=== PATIENT | female | born 1995 | race Caucasian/White ===

== ENCOUNTER 2019-12-09 19:42 | Emergency (ER) | payer OTHER | END 2019-12-10 01:14 | disposition home or self-care (01) | LOC: M.ERS 19:42 | DX: R10.32 Left lower quadrant pain (principal); Z88.1 Allergy status to other antibiotic agents; Z88.8 Allergy status to other drugs, medicaments and biological substances; Z79.899 Other long term (current) drug therapy ==

== ENCOUNTER → 2020-03-23 | Outpatient (CLI) | payer OTHER ==
[~2020-03-23] MED LIST: CITRATE OF MAG296 M1 PO; CONCERTA ER 1818 MG PO; MACROBID 100 M100 MG PO; NORCO 5-325 TA1 EAC2 PO; SYNTHROID88 MC1 PO; WELLBUTRIN SR100 MG PO; ZOFRAN ODT4 MG DISSOLVE
== END ==
LOC: M.NUC 12:20
PROVIDERS: ATTEND Surgery
DX: R10.9 Unspecified abdominal pain (principal)

== ENCOUNTER → 2020-04-27 | Outpatient (CLI) | payer OTHER ==
[~2020-04-27] MED LIST changes: +METHYLPHENIDATE40 M1 PO
== END ==
LOC: M.LAB 11:10
PROVIDERS: ATTEND Surgery
DX: Z01.812 Encounter for preprocedural laboratory examination (principal); R10.9 Unspecified abdominal pain; Z20.828 Contact with and (suspected) exposure to other viral communicable diseases

== ENCOUNTER → 2020-05-02 | Day surgery (SDC) | payer OTHER ==
[~2020-05-02] MED LIST changes: +OXYCODONE HCL 55 MG PO
[2020-05-02 12:09] LABS: HEMATOCRIT 41.3 % (37.0-47.0); HEMOGLOBIN 14.2 gm/dL (12.0-15.0)
--- NOTE | 2020-05-03 18:16 | OP ---
[address] [address] OPERATIVE REPORT Name: CHARLIEDAQUANERICAGEORGIANA CRAFT Rocky Room: [facility]#: [id number] Admission: 05/02/20 Attend Phys: Elizabeth Jaimes Discharge: Date of : 89 Report #: [id number] THIS REPORT FOR: cc: Alona Regalado,Alona CHASE ~ Parmjit Aguilar DO CC: Parmjit Regalado FINANCIAL PLANNING ADVISOR DICTATED BY: Fatemeh Vasquez DO DATE OF SERVICE: 05/02/2020 PRIMARY CARE PHYSICIAN: Alona Regalado NP PREOPERATIVE DIAGNOSIS: Right-sided abdominal pain. POSTOPERATIVE DIAGNOSIS: Right-sided abdominal pain. PROCEDURE PERFORMED: Diagnostic laparoscopy with laparoscopic appendectomy. PRIMARY SURGEON: Parmjit Aguilar DO SENIOR CENTER MANAGER: Fatemeh Vasquez DO, PGY3. SECOND SALES DEPARTMENT SUPERVISOR: Chalino CALDERON3. ANESTHESIA: General. ESTIMATED BLOOD LOSS: 5 mL. SPECIMEN: Appendix. COMPLICATIONS: None. FINDINGS: Normal appearing reproductive organs. There were some adhesions in the right abdomen from the ascending colon to the abdominal wall. Otherwise, no acute findings. INDICATIONS FOR PROCEDURE: The patient is a pleasant 24-year-old female who presented to our office with complaint of recurrent right-sided abdominal pain. She had several CT scans in the past, one of which was reviewed by her urologist, which did show appendicolith in the appendix, but no signs of appendicitis. She underwent several workup studies including a RUQ US, HIDA, and pelvic ultrasound that were unremarkable. She kept a food diary and was [facility] [address] [place] [address] OPERATIVE REPORT Name: GEORGIANA GUPTA [place] Room: [facility]#: [id number] Admission: 05/02/20 Attend Phys: Elizabeth Jaimes Discharge: Date of : 89 Report #: [id number] placed on a bowel regimen without complete resolution. She continued to have recurrent right-sided abdominal pain. We discussed laparoscopic appendectomy. We did discuss that it may or may not resolve the chronic abdominal pain that she has been experiencing. The procedure, risks, benefits, possible complications to include bleeding, infection, injury to surrounding structures, need for additional surgery, need for open procedure, wound healing issues, risks of anesthesia, and other risks of surgery were discussed with the patient in great detail. She voiced complete understanding and wished to proceed with surgery. DESCRIPTION OF PROCEDURE: Informed consent was obtained. The patient was taken to the operating room and placed supine on the operating room table. General endotracheal anesthesia was induced without difficulty. SCDs were placed on bilateral lower extremities. Preoperative antibiotics were given. The abdomen was prepped and draped in the standard sterile fashion. A timeout was performed to ensure correct patient and procedure. An infraumbilical horizontal 2 cm incision was made using a #11 blade scalpel. The incision was carried down through the subcutaneous tissue using electrocautery. S retractors were used to dissect further down to the level of fascia. Fascia was scored with electrocautery. Fascia was grasped between 2 Kochers and elevated. The peritoneum was grasped between 2 hemostats and opened using Metzenbaum scissors. 0 Vicryl stay sutures were placed on either side of the fascial opening. The 12 mm Rekha trocar was inserted through the fascial opening. Abdomen was insufflated without difficulty. Laparoscopic camera was inserted and a sweep of the anterior abdominal contents was performed. On our initial sweep of all the abdominal contents, the only finding were some adhesions in the right abdomen from the ascending colon to the right anterior abdominal wall. These did not appear to be causing any sort of obstruction or acute process. A left lower quadrant 5 mm trocar was inserted under direct visualization followed by a suprapubic 5 mm trocar, which was also inserted under direct visualization. The right lower quadrant was explored. The cecum was in the pelvis. This was retracted superiorly and the appendix was identified, it did appear to be normal. The reproductive organs were inspected and pictures were taken throughout the case. There were no other acute findings on our inspection of the abdominal contents, so we proceeded with appendectomy. A [place] dissector was used to dissect a window in the mesoappendix just at the base of the appendix. A 45 mm purple load on the Endo-JEFFREY stapler was used to come across the base of the appendix. This did not come completely across the tissue, so a second 45 mm load on the Endo-JEFFREY was used to completely free the base of the appendix from the cecum. A 30 mm vascular load on the Endo-JEFFREY stapler was used to come across the mesoappendix. The appendix was placed within an EndoCatch bag. The staple lines were then inspected. Staple lines appeared to be intact with no active bleeding. The distal small bowel was run. There did not appear to be any other abnormalities. A suprapubic and left lower quadrant trocars were removed under direct visualization. Abdomen was desufflated without difficulty. The Rekha trocar as well as the appendix [place] [address] OPERATIVE REPORT Name: GEORGIANA GUPTA Room: [facility]#: [id number] Admission: 05/02/20 Attend Phys: Elizabeth Jaimes Discharge: Date of : 89 Report #: [id number] were removed. The fascia at the infraumbilical incision was closed using 0 Vicryl suture in a amsgtk-ca-fehya fashion. Skin was closed using 4-0 Monocryl suture in a running subcuticular fashion. The 5 mm trocar sites were closed using 4-0 Monocryl suture in a simple interrupted and inverted fashion. Skin was cleansed and dried. Dermabond was applied to each incision. The patient tolerated the procedure very well. She was allowed to awaken in the operating room and was transferred to the PACU in stable condition with plans to discharge home later today. <ELECTRONICALLY SIGNED> By: Parmjit Aguilar DO 05/03/20 1816 1525 [id number] Aguilar DO /nt
--- NOTE | 2020-05-05 11:07 | PATH ---
[address] [address] PATHOLOGY RPT PROCEDURE Name: KAMRYN SOLOMON Room: [facility]#: [id number] Admission: 05/02/20 Date of : 89 Discharge: Report #: [id number] Path Case #: [id number] [facility] Accession Number: [id number] . 01 Material submitted: . appendix - APPENDIX . 01 Clinical history: . ABDOMINAL PAIN . 02 Diagnosis: Appendix: - Benign, non-inflamed appendix. (ODALYS:january; 05/04/2020) [employer] [employer] 05/04/2020 1512 Local . 02 Electronically signed: . Kai Carrasquillo MD, Pathologist NPI- [id number] . 01 Gross description: . The specimen is received in formalin, labeled "Kamryn Solomon, appendix". Received is a vermiform appendix measuring 6.8 cm in length by up to 0.9 cm in diameter with a moderate amount of attached mesoappendix. The serosal surface is pink-mcpherson to pink-bello and smooth in appearance. The surgical margin is closed with a line of yoni. The yoni are removed and the new margin is inked black. Sectioning reveals a patent to dilated lumen filled with fecal material. The specimen is submitted entirely in cassettes A1 through A4, with the proximal margin and bisected tip submitted in cassette A1. (CAA; 05/03/2020) QAC/QAC 05/03/2020 1522 Local . 02 Pathologist provided ICD-10: R10.9 . 02 CPT . 983223 Specimen Comment: A courtesy copy of this report has been sent to [phone] Specimen Comment: Report sent to Performed at: [address], [place] [id number] MD Rito Elizabeth MD Phone: [phone] Performed at: 02 [facility] [address], [place], [place] [id number] MD Kai Carrasquillo MD Phone: [phone]
== END | disposition home or self-care (01) ==
LOC: M.SUR 06:42
PROVIDERS: ATTEND Surgery
DX: R10.9 Unspecified abdominal pain (principal); D12.1 Benign neoplasm of appendix; E03.9 Hypothyroidism, unspecified; Z98.890 Other specified postprocedural states; Z79.899 Other long term (current) drug therapy; Z87.442 Personal history of urinary calculi; Z88.8 Allergy status to other drugs, medicaments and biological substances

== ENCOUNTER 2021-07-13 21:43 | Emergency (ER) | payer OTHER ==
[~2021-07-13] VITALS: Ht 160 cm; Wt 44.9 kg
[2021-07-13 22:46] LABS: ABSOLUTE EOSINOPHILS 0.1 thou/uL (0.0-0.7); ABSOLUTE LYMPHOCYTES 2.4 thou/uL (0.8-5.3); ABSOLUTE MONOCYTES 0.6 thou/uL (0.0-1.2); ABSOLUTE NEUTROPHILS 4.5 thou/uL (1.6-8.1); BASOPHILS 0.4 %; HEMATOCRIT 39.7 % (37.0-47.0); HEMOGLOBIN 13.9 gm/dL (12.0-15.0); LYMPHOCYTES 31.2 %; MCH 32.4 pg (26.0-34.0); MCV 92.6 fL (80.0-100.0); MONOCYTES 8.3 %; MPV 6.5 fl. (7.2-11.1); NUCLEATED RBCS 0 /100WBC; PLATELET COUNT* 249 thou/uL (150-400); POLYS 59.1 %; RBC 4.29 mil/uL (4.20-5.00); RDW-CV 12.7 % (10.5-14.5); WBC 7.6 thou/uL (4.0-11.0)
[2021-07-13 23:07] LABS: URINE BILIRUBIN NEGATIVE (Negative); URINE BLOOD NEGATIVE (Negative); URINE CLARITY CLEAR; URINE COLOR YELLOW; URINE GLUCOSE-RANDOM NEGATIVE (Negative); URINE KETONES NEGATIVE (Negative); URINE LEUKOCYTES-REFLEX NEGATIVE (Negative); URINE NITRITE-REFLEX NEGATIVE (Negative); URINE PROTEIN NEGATIVE (Negative); URINE SPECIFIC GRAVITY 1.015 (1.005-1.030); URINE UROBILINOGEN 0.2 E.U./dl (0.2-1.0)
[2021-07-13 23:32] LABS: CALCIUM 7.9 mg/dL (8.5-10.1); CREATININE 0.6 mg/dL (0.6-1.3); POTASSIUM 3.6 mmol/L (3.5-5.1)
[2021-07-13 23:36] LABS: ALBUMIN 3.2 g/dL (3.4-5.0); TOTAL BILIRUBIN 0.3 mg/dL (<0.1-1.0); TOTAL PROTEIN 5.8 g/dL (6.4-8.2)
[2021-07-14] MEDS ORDERED: DICYCLOMINE HCL20 MG PO (00:40)
[2021-07-14 00:55] VITALS: BP 113/67
== END 2021-07-14 00:59 | disposition home or self-care (01) ==
LOC: M.ERS 21:43
PROVIDERS: Physician Assistant
DX: K59.00 Constipation, unspecified (principal); Z88.1 Allergy status to other antibiotic agents; Z88.8 Allergy status to other drugs, medicaments and biological substances; Z87.442 Personal history of urinary calculi; Z90.49 Acquired absence of other specified parts of digestive tract